=== PATIENT | female | born 1965 | race Caucasian/White ===

== ENCOUNTER 2020-12-23 19:04 | Emergency (ER) | payer SELFPAY ==
[~2020-12-23] VITALS: Ht 162.6 cm; Wt 63.0 kg
[2020-12-23] MEDS ORDERED: IBUPROFEN 600MG TABLET PO STA (19:52)
[2020-12-23] MEDS ORDERED: IBUP-2029 MT (20:37)
[2020-12-23 20:45] VITALS: BP 123/65
== END 2020-12-23 20:45 | disposition home or self-care (01) ==
LOC: ER 19:04
DX: S20.01XA Contusion of right breast, initial encounter (principal); X58.XXXA Exposure to other specified factors, initial encounter; Y93.89 Activity, other specified; Y92.89 Other specified places as the place of occurrence of the external cause; Y99.8 Other external cause status
CPT/HCPCS: 71045; 99283